=== PATIENT | male | born 1990 | race Two or more races ===

== ENCOUNTER 2019-09-24 23:14 | Emergency (ER) | payer SELFPAY ==
[~2019-09-24] VITALS: Ht 180.3 cm; Wt 73.5 kg
[2019-09-24 23:29] VITALS: BP 131/91
== END 2019-09-24 23:54 | disposition home or self-care (01) ==
LOC: ER 23:14 → EDBD 23:14 → ER 23:54
DX: Z02.89 Encounter for other administrative examinations (principal)